=== PATIENT | female | born 1985 | race Caucasian/White ===

== ENCOUNTER → 2018-10-15 11:48 | Outpatient (CLI) | payer OTHER, SELFPAY ==
[2018-10-15 13:04] LABS: Vitamin D,25 Hydroxy 32.8 ng/mL (29.95-100.01)
[2018-10-15 13:14] LABS: Free T3 5.4 pg/mL (2.18-3.98); T4 Free Direct 0.76 ng/dL (0.76-1.46)
== END ==
PROVIDERS: Referring Provider Specialist; Visit Provider Specialist
DX: E55.9 Vitamin D deficiency, unspecified (principal); E03.8 Other specified hypothyroidism
CPT/HCPCS: 36415; 82306; 84439; 84443; 84481

== ENCOUNTER → 2019-10-21 09:31 | Outpatient (CLI) | payer OTHER, SELFPAY ==
[2017-04-26 20:16] VITALS: BMI 42.0
[2019-10-21 10:11] LABS: Erythrocyte Sedimentation Rate 8 mm/hr (0-20)
[2019-10-21 10:12] LABS: Hematocrit 39.9 % (37-47); Hemoglobin 13.9 g/dL (12.0-15.0); Mean Corp Hgb Conc 34.8 g/dL (32-36); Mean Corpuscular Hgb 30.2 pg (27.0-32.0); Mean Corpuscular Volume 86.6 fL (81-99); Mean Platelet Vol. 9.5 fl (6.2-12.0); Platelet Count 291 K/mm3 (150-450); RBC Distribution Width CV 12.2 % (11.6-14.6); RBC Distribution Width SD 38.7 fl (35.1-43.9); Red Blood Count 4.61 M/mm3 (4.2-5.4); White Blood Count 7.2 K/mm3 (4.4-11.0)
[2019-10-21 10:52] LABS: ALB/GLOB Ratio 0.8 RATIO (0.9-2.4); AST(SGOT) 16 U/L (15-37); Alanine Aminotransfer ALT/SGPT 25 U/L (13-56); Albumin, Serum 3.5 g/dL (3.2-5.0); Alkaline Phosphatase 113 U/L (45-117); Anion Gap 5 (5-15); BUN 12 mg/dL (7-18); Chloride 106 mmol/L (98-107); Creatinine, Serum 0.67 mg/dL (0.55-1.02); EST Glomerular Filtration Rate 107 mL/min (>60); Est Glom Filt Rate - Afr Amer 130 mL/min (>60); Globulin 4.2 g/dL (2.2-4.2); Glucose 87 mg/dL (74-106); Potassium 3.8 mmol/L (3.5-5.1); Protein, Total 7.7 g/dL (6.4-8.2); Sodium Level 137 mmol/L (136-145)
== END ==
PROVIDERS: PCP Family Medicine; Visit Provider Family Medicine
DX: R53.82 Chronic fatigue, unspecified (principal); R50.9 Fever, unspecified
CPT/HCPCS: 36415; 80053; 85027; 85652

== ENCOUNTER → 2020-08-20 14:00 | Outpatient (CLI) | payer OTHER, SELFPAY ==
[2017-04-26 20:16] VITALS: BMI 42.0
[2020-08-20 15:17] LABS: Progesterone Level 33.27 ng/mL (See Comment)
[2020-08-20 15:28] LABS: Estradiol 62.6 pg/mL; Free T3 1.7 pg/mL (2.18-3.98); T4 Free Direct 0.62 ng/dL (0.76-1.46)
== END ==
PROVIDERS: PCP Family Medicine; Referring Provider Specialist; Visit Provider Specialist
DX: E28.8 Other ovarian dysfunction (principal); E03.9 Hypothyroidism, unspecified
CPT/HCPCS: 36415; 82670; 84144; 84403; 84439; 84481

== ENCOUNTER → 2022-11-25 | Outpatient (CLI) | payer OTHER, SELFPAY ==
[2022-11-25 10:54] LABS: Glucose GTT- Fasting 95 mg/dL (74-106)
[2022-11-25 11:10] LABS: Insulin 17.2 mU/L (2.6-37.6)
[2022-11-25 11:47] LABS: Glucose GTT- 1 Hour 168 mg/dL (120-170)
[2022-11-25 11:55] LABS: Insulin 264.4 mU/L (2.6-37.6)
[2022-11-25 12:49] LABS: Glucose GTT- 2 Hour 129 mg/dL (70-120)
[2022-11-25 12:59] LABS: Insulin 129.6 mU/L (2.6-37.6)
[2022-11-25 14:29] LABS: Glucose GTT- 3 Hour 59 mg/dL (74-106)
[2022-11-25 14:36] LABS: Insulin 17.6 mU/L (2.6-37.6)
[2022-11-25 14:38] LABS: Hemoglobin A1c 5.4 % (3.8-5.6)
[2022-12-01 01:08] LABS: T3 Reverse 11.1 ng/dL (9.2-24.1)
== END | disposition home or self-care (01) ==
LOC: LAB 09:48
PROVIDERS: PCP Specialist
DX: E06.3 Autoimmune thyroiditis (principal)
CPT/HCPCS: 36415; 82951; 82952; 83036; 83525; 84480; 84482

== ENCOUNTER → 2024-10-01 | Outpatient (CLI) | payer OTHER, SELFPAY ==
--- NOTE | 2024-10-01 15:37 | US_ITS ---
PROCEDURE: PELVIC W/ TRANSVAGINAL REASON FOR EXAM: Right lower quadrant pain. TECHNIQUE: Transabdominal and transvaginal pelvic ultrasound COMPARISON: None. FINDINGS: Measurements: Uterus: The patient is status post hysterectomy. Right Ovary: 4 cm x 2.6 cm x 2.2 cm with a volume of 12.2 mL. Left Ovary: 3.5 cm x 2.6 cm x 1.9 cm with a volume of 8.78 mL. TRANSABDOMINAL: Uterus: Status post hysterectomy. Right ovary: Normal size and echotexture. A dominant follicle measuring 2 cm x 1.8 cm x 0.9 cm is present. Left ovary: Normal size and echotexture. No large pelvic mass identified. Transvaginal sonography was performed as transabdominal imaging did not explain the patient's presenting symptoms. TRANSVAGINAL: Uterus: Status post hysterectomy. Right ovary: Normal size and echotexture. Dominant follicle measuring 2 cm x 1.8 cm x 0.9 cm Left ovary: Normal size and echotexture. Other adnexal findings: None. Cul-de-sac: No free intraperitoneal fluid identified. No tenderness. US/Pelvic w/ Transvaginal IMPRESSION: Status post hysterectomy. There is a dominant follicle in the right ovary measuring 2 cm x 1.8 cm x 0.9 c m. Reading Location: [place] [id number]
== END | disposition home or self-care (01) ==
LOC: US 15:35
PROVIDERS: PCP Specialist; Referring Provider Nurse Practitioner Women's Health; Visit Provider Nurse Practitioner Women's Health
DX: R10.9 Unspecified abdominal pain (principal)
CPT/HCPCS: 76830; 76856